=== PATIENT | female | born 1995 | race Asian ===

== ENCOUNTER 2017-06-13 10:48 | Emergency (ER) | payer BC ==
[~2017-06-13] VITALS: Ht 157.5 cm; Wt 88.0 kg
[~2017-06-13 10:48] MED LIST: BIRTH CONTROL PO; DESO1TAB10 PO
[2017-06-13] MEDS ORDERED: NORG1TAB30 (11:09)
--- NOTE | 2017-06-13 11:21 | ED General ---
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 She noticed a little swelling in her left fourth finger 2 days ago, and mild excoriation from her eczema. This morning she awoke and in her left fourth finger was swollen, she was unable to remove her ring. She tried ice, elevation and lubricants with no resolution of her symptoms. She has never had a similar problem in the past. The ring is usually able to be removed easily she takes it off every 2-3 days. Ring removed from finger by nursing staff with ring cutter. Patient had immediate improvement of her pain. Timing/Duration: 1-3 Hours Allergies and Home Medications Allergies Coded Allergies: No Known Drug Allergies (Unverified , 04/22/15) Home Medications Norgestimate-Ethinyl Estradiol 1 Each Tablet, (Reported) Constitutional: no symptoms reported, see HPI : No Skin: see HPI, change in color, rash (mild eczema to the fingers bilateral hands.), other (unable to remove for having left fourth finger. ) All Other Systems Reviewed Negative Unless Noted: Yes Past Lkthoyl-Aeowhp-Cqhuws Hx Patient Social History Alcohol Use: Occasionally Uses Recreational Drug Use: No Smoking Status: Never a Smoker Recent Foreign Travel: No Contact w/Someone Who Travel: No Recent Infectious Disease Expo: No Physical Abuse: No Sexual Abuse: No Immunizations Up To Date Tetanus Booster (TDap): Less than 5yrs Surgeries History of Surgeries: No Respiratory History of Respiratory Disorde: No Currently Using CPAP: No Currently Using BIPAP: No Cardiovascular History of Cardiac Disorders: No Neurological History of Neurological Disord: No Reproductive System Hx Reproductive Disorders: No Gastrointestinal History of Gastrointestinal Di: No Musculoskeletal History of Musculoskeletal Dis: No Endocrine History of Endocrine Disorders: No HEENT Loss of Vision: Denies Hearing Impairment: Denies Cancer History of Cancer: No Psychosocial History of Psychiatric Problem: Yes (SUICIDAL THOUGHTS, NO PRIOR ATTEMPT PER PT ) Behavioral Health Disorders: Anxiety, Depression Suicide Risk Score: 0 Integumentary History of Skin or Integumenta: Yes Skin/Integumentary Disorders: Eczema Blood Transfusions History of Blood Disorders: No Reviewed Nursing Assessment Reviewed/Agree w Nursing PMH: Yes Physical Exam Vital Signs Vital Sign - Last 12Hours 06/13/17 11:05 Temp 98.2 Pulse 84 Resp 18 B/P (MAP) 128/82 Pulse Ox 97 Capillary Refill : Less Than 3 Seconds General Appearance: No Apparent Distress, WD/WN Neck: Full Range of Motion, Normal Inspection Respiratory: Chest Non Tender, Lungs Clear Cardiovascular: Regular Rate, Rhythm, No Edema, Normal Peripheral Pulses Extremity: Normal Capillary Refill, Normal Inspection, Normal Range of Motion, Non Tender Neurologic/Psychiatric: Oriented x3, No Motor/Sensory Deficits, Normal Mood/ Affect Skin: Normal Color, Warm/Dry, Rash (mild resolving eczema bilateral hands mainly noted fingers.), Other (mild swelling left fourth finger, full flexion and extension at the MCP, PIP and DIP joints. Resisted range of motion V/V. ) Progress/Results/Core Measures Results/Orders Vital Signs/I&O Vital Sign - Last 12Hours 06/13/17 06/13/17 11:05 11:40 Temp 98.2 98.2 Pulse 84 84 Resp 18 18 B/P (MAP) 128/82 Pulse Ox 97 97 Blood Pressure Mean: 97 Departure Impression Impression: Primary Impression: Eczema of both hands Additional Impression: Ring or other jewelry causing external constriction, initial encounter Disposition: 01 HOME, SELF-CARE Condition: Improved Departure-Patient Inst. Decision time for Depature: 11:15 Referrals: NO,LOCAL PHYSICIAN (PCP/Family) Primary Care Physician Patient Instructions: Eczema (Atopic Dermatitis) (DC) Add. Discharge Instructions: Continue to use ocular for for eczema. Remove rings whenever eczema flares up. Tylenol 650 mg every 6-8 hours as needed for pain. Ice finger 20 minutes every 2 -3 hours as needed for swelling. Return to emergency department for worsening of symptoms or new problems All discharge instructions reviewed with patient and/or family. Voiced understanding. Work/School Note: Work Release Form Date Seen in the Emergency Department: Jun 13, 2017 Return to Work: Jun 13, 2017 Restrictions: No Restrictions Other Restrictions Listed Below: May return to work at 1:00 pm MINE RANGEL Jun 13, 2017 11:21
[2017-06-13 11:40] VITALS: BP 128/82
== END 2017-06-13 11:41 | disposition home or self-care (01) ==
LOC: EDUNIT# 10:48 → ER 10:51
DX: S60.445A External constriction of left ring finger, initial encounter (principal); L30.9 Dermatitis, unspecified; F41.9 Anxiety disorder, unspecified; F32.9 Major depressive disorder, single episode, unspecified; W49.04XA Ring or other jewelry causing external constriction, initial encounter
CPT/HCPCS: 99281